=== PATIENT | female | born 1985 | race Caucasian/White ===

== ENCOUNTER 2024-07-25 22:12 | Emergency (ER) | payer BC, SELFPAY ==
[2024-07-25 22:22] VITALS: BP 106/81
[2024-07-25 22:42] LABS: % Basophils 0.2 % (0-2); % Eosinophils 2.8 % (0-6); % Immature Granulocytes 0.2 % (0-0.5); % Lymphocytes 18.6 % (20.5-51.1); % Monocytes 9.1 % (1.7-9.3); % Neutrophils 69.1 % (42.2-75.2); Absolute Eosinophils 0.1 10^3/uL (0-0.7); Absolute Lymphocytes 0.9 10^3/uL (1.2-3.4); Absolute Monocytes 0.5 10^3/uL (0.1-0.6); Absolute Neutrophils 3.5 10^3/uL (1.4-6.5); Hematocrit 35.2 % (37.0-47.0); Mean Corp Hgb Conc. 34.1 g/dL (33.0-37.0); Mean Corpuscular Hgb 30.2 pg (27.0-31.0); Mean Corpuscular Volume 88.7 fL (81.0-99.0); Mean Platelet Volume 9.7 fL (7.4-10.4); Nucleated Red Blood Cells % 0 %; Platelet Count 131 10^3/uL (130-400); Red Blood Cell Count 3.97 10^6/uL (4.20-5.40); Red Cell Dist. Width 12.2 % (11.5-14.5); White Blood Cell Count 5.1 10^3/uL (4.8-10.8)
[2024-07-25 22:53] LABS: HCG, Serum Qualitative Screen Negative
[2024-07-25 22:57] LABS: COVID-19 Antigen Negative (Negative)
[2024-07-25 23:04] LABS: ALT (SGPT) 14 U/L (0-35); AST (SGOT) 20 U/L (14-36); Albumin 3.8 g/dl (3.5-5.0); Alkaline Phosphatase 42 U/L (38-126); Blood Urea Nitrogen 16 mg/dl (7-17); Calcium 9.1 mg/dl (8.4-10.2); Carbon Dioxide 24 mmol/L (22-30); Chloride 106 mmol/L (98-107); Glucose 113 mg/dl (70-99); Potassium 3.6 mmol/L (3.5-5.1); Sodium 136 mmol/L (135-145); Total Bilirubin 0.4 mg/dl (0.2-1.3); Total Protein 6.2 g/dl (6.3-8.2); eGFR > 60.00
--- NOTE | 2024-07-26 01:14 | ED.GENMED ---
History of Present Illness
General
Chief Complaint: Cold/Flu/URI Symptoms
Source: patient
Exam Limitations: none
Time Seen by Provider: 07/25/24 23:54
History of Present Illness
History of Present Illness:
39-year-old female who presents with congestion, cough, off and on hot and cold feeling, body aches that started last Friday. She tested at home for COVID and flu was negative. Her doctor put her on Z-Connor. Patient states tonight her symptoms
persisted. She states she woke up feeling okay but then through the day felt bad again and feverish and weak. On my evaluation she actually feels a lot better. Patient states that her is also sick. No hemoptysis. She does report a lot
of pain when she coughs.
Past History
Past History
ED Past Medical History: Arrthythmia (Palpitations), Asthma (Seasonal), HTN, Psychiatric (anxiety) and Other (dysautonomia, POTS, PNA,)
ED Past Surgical History: (X 2) and Other (eye)
Social History
Tobacco: Vaping (every day)
Alcohol: Former
Drug: None
Personal:
Living: with family
Employment: Employed
Family History
Family History: Other (anxiety, HTN-mother)
Phy Exam
Physical Exam
Physical Exam:
CONSTITUTIONAL Patient alert and oriented to person, place and time. Well-appearing. Vital signs reviewed.
HEAD atraumatic, normocephalic.
EYES eyelids normal to inspection, Extraocular muscles intact, Conjunctiva normal, Sclera normal.
NECK normal range of motion, Trachea midline, no jugular venous distention.
RESPIRATORY CHEST No respiratory distress noted, Chest expansion equal, Bilateral breath sounds clear.
CARDIOVASCULAR regular rate and rhythm, Heart sounds normal.
ABDOMEN abdomen nontender, Bowel sounds normal. No distention.
BACK normal inspection, no obvious deformities
UPPER EXTREMITY range of motion normal, Motor strength normal, no cyanosis, no edema.
LOWER EXTREMITY range of motion normal, Motor strength normal, no cyanosis, no edema.
NEURO Speech normal, No focal motor deficits, Rudolph coma scale 15, Memory normal, Cranial Nerves intact to screening exam.
SKIN skin warm, dry, and normal in color.
Sepsis
Sepsis Screening
Sepsis Assessment: Sepsis Ruled Out
Sepsis Screen
Sepsis Screen: Sepsis Ruled Out
Date: 07/26/24
Time: 07:06
Course
Orders/Labs/Results
Orders:
Orders
07/25/24 22:29
CR Chest - 2 Views Urgent
Comment:
Reason For Exam: shortness of breath
07/25/24 22:31
Test Result ONCE
07/25/24 22:36
COVID-19 Antigen Urgent
Source: Nasal Swab
Complete Blood Count/With Diff Urgent
Comprehensive Metabolic Panel Urgent
HCG, Serum Qualitative Screen Urgent
INF RAPID [Influenza A+B Rapid Molecular] Urgent
ROBERTO CARLOS Source: Nasal Swab
Specimen Description:
07/26/24 01:28
Acetaminophen [Tylenol] 1,000 mg .ROUTE .STK-MED ONE
07/26/24 01:29
Acetaminophen [Tylenol] 1,000 mg PO NOW STA
Abnormal Lab Results
07/25/24
22:36
RBC 3.97 L 10^6/uL
(4.20-5.40)
Hct 35.2 L %
(37.0-47.0)
Absolute Lymphs (auto) 0.9 L 10^3/uL
(1.2-3.4)
Lymphocytes % 18.6 L %
(20.5-51.1)
Glucose 113 H mg/dl
(70-99)
Total Protein 6.2 L g/dl
(6.3-8.2)
07/25/24 22:36
07/25/24 22:36
Vital Signs
Initial and Last Documented VS:
Initial Vital Signs
Temp Pulse Resp BP Pulse Ox
98.7 F 92 28 106/81 100
07/25/24 22:22 07/25/24 22:22 07/25/24 22:22 07/25/24 22:22 07/25/24 22:22
Last Documented Vital Signs
Temp Pulse Resp BP Pulse Ox
99.4 F 92 28 106/81 100
07/26/24 00:08 07/25/24 22:22 07/25/24 22:22 07/25/24 22:22 07/25/24 22:22
MDM/Problems Addressed
Differential Diagnosis Includes:
Pneumonia, influenza, bronchitis, electrolyte disturbance
MDM/Problems Addressed:
Influenza
*Radiology
Radiology exam reviewed: all reviewed NAD by ED Provider
*Pulse Oximetry
Patient hypoxic: no
*Critical Care Note
Total Time (30-74mins, 75-104mins- exclusive of procedures): Not Applicable
Data Reviewed
Source: patient
Prescriptions/Medications Considered But Not Given:
Considered antibiotics but already on Zithromax and influenza positive
Patient Management
Escalation/DeEscalation of care consider admission/obs:
Patient appears well. Now 5 to 6 days into her symptoms. Anticipate improvement soon. Outpatient management recommended. Recommended vitamin C, vitamin D, zinc, symptomatic control with Mucinex if needed. Tylenol and ibuprofen for fever
ED Attending Note
-
Portions of this chart may have been created with voice recognition software.� Occasional wrong word or��sound alike� substitutions may have occurred due to the inherent limitations of voice recognition software.
Discharge Plan
Departure
Patient Disposition: Home (Routine Discharge)
Date of Disposition: 07/26/24
Time of Disposition: 01:16
Patient with high blood pressure during this ER visit?: No
Discharge Problem:
Influenza
Instructions: Flu, Viral Syndrome (DC)
Prescriptions:
No Action
multivitamin 1 EACH tablet
1 ea PO DAILY
alprazolam 0.25 MG tablet
0.25 mg PO Q8HPRN PRN (Reason: anxiety)
montelukast 10 MG tablet
10 mg PO NOW
fluticasone furoate-vilanterol [Breo Ellipta] 1 EACH blister with device
1 ea IH DAILY
albuterol sulfate
2 inh inhalation Q4H PRN (Reason: SOB)
Referrals:
Chay Stephens MD [Family Provider] -
Activity Restrictions/Additional Instructions:
Please drink plenty of fluids. Please consider zinc, vitamin D and vitamin C supplementation as described. Return immediate for difficulty breathing, worsening symptoms or any other concerns. Continue [id number] medication use for symptom
control
Interventions
Interventions:
*Risk Screen - Suicide Last Done: 07/25/24 22:22
*General Assessment Last Done: 07/25/24 22:22
*Neglect/Abuse Screening Last Done: 07/25/24 22:22
*ED- Fall Risk Assessment Last Done: 07/25/24 22:22
*ED COVID-19 Vaccine History Last Done: 07/25/24 22:22
*Nursing Disposition Last Done: 07/26/24 01:36
ED- Pulmonary Assessment Last Done: 07/26/24 00:43
Discharge Date and Time
Discharge Date/Time: 07/26/24 01:37
Print Language: KOSOVAN
[2024-07-26] MEDS: TYLENOL 1000 MG PO (01:29)
== END 2024-07-26 01:37 | disposition home or self-care (01) ==
LOC: EMR 22:12
PROVIDERS: Emergency Medicine; EMERGENCY PHYSICIAN Emergency Medicine; FAMILY PHYSICIAN Family Medicine
DX: J10.1 Influenza due to other identified influenza virus with other respiratory manifestations (principal); I10 Essential (primary) hypertension; J45.909 Unspecified asthma, uncomplicated; F17.290 Nicotine dependence, other tobacco product, uncomplicated; Z11.52 Encounter for screening for COVID-19
CPT/HCPCS: 99284; 71046; 80053; 84703; 85025; 87502; 87811